=== PATIENT | female | born 1935 | race Caucasian/White ===

== ENCOUNTER 2023-07-23 12:39 | Inpatient (IN) | payer MEDICARE ==
--- NOTE | 2023-07-23 13:08 | ED ---
General Adult HPI - General Stated complaint: circulation in legs, sent by pcp Time Seen by Provider: 07/23/23 13:07 Source: patient, RN notes reviewed Mode of arrival: ambulatory Limitations: no limitations - History of Present Illness Initial comments: 88-year-old female presents emergency Department from PCPs office for evaluation of bilateral leg swelling. Patient states that she has no cardiac history patient's found to be hypertensive and tachycardic. Patient states she has bilateral leg swelling minimal shortness of breath. Patient states that she's had discoloration to her feet and which she states initially started in her toes couple weeks ago she has is worse in the last 1 week. She initially stated that her toes were having discomfort in them. She denies any history of any vascular disease. Patient denies upper leg pain, abdominal pain - Related Data Allergies Allergy/AdvReac Type Severity Reaction Status Date / Time No Known Allergies Allergy Verified 07/23/23 13:07 Review of Systems ROS Statement: Those systems with pertinent positive or pertinent negative responses have been documented in the HPI. ROS Other: All systems not noted in ROS Statement are negative. Past Medical History Past Medical History: Thyroid Disorder Additional Past Medical History / Comment(s): Glaucoma History of Any Multi-Drug Resistant Organisms: None Reported Past Surgical History: No Surgical Hx Reported Past Psychological History: No Psychological Hx Reported Smoking Status: Never smoker Past Alcohol Use History: None Reported Past Drug Use History: None Reported General Exam - General Exam Comments Initial Comments: Visual Physical Exam Vital signs reviewed General: Well-appearing, nontoxic, no acute distress. Head: Normocephalic, atraumatic Eyes: PERRLA, EOMI ENT: Airway patent Chest: Nonlabored breathing Skin: No visual rash, normal skin tone Neuro: Alert and oriented 3 Musculoskeletal: No gross abnormalities Limitations: no limitations General appearance: alert, in no apparent distress Head exam: Present: atraumatic, normocephalic, normal inspection Eye exam: Present: normal appearance, PERRL, EOMI. Absent: scleral icterus, conjunctival injection, periorbital swelling ENT exam: Present: mucous membranes moist Neck exam: Present: normal inspection. Absent: tenderness, meningismus, lymphadenopathy Respiratory exam: Present: normal lung sounds bilaterally. Absent: respiratory distress, wheezes, rales, rhonchi, stridor Cardiovascular Exam: Present: tachycardia, irregular rhythm, normal heart sounds. Absent: regular rate, normal rhythm, systolic murmur, diastolic murmur, rubs, gallop, clicks GI/Abdominal exam: Present: soft, normal bowel sounds. Absent: distended, tenderness, guarding, rebound, rigid Extremities exam: Present: other (Swelling left versus right lower extremity, feet are cool to touch with purple discoloration there is some erythema to the third digit on the left posterior and dorsal pedis pulses found with Doppler) Neurological exam: Present: alert Skin exam: Present: warm, dry, intact, normal color. Absent: rash Course Vital Signs 07/23/23 07/23/23 07/23/23 13:03 14:02 14:46 Temperature 98 F Pulse Rate 126 H 122 H 81 Respiratory 18 16 18 Rate Blood Pressure 179/115 186/106 160/99 O2 Sat by Pulse 98 96 99 Oximetry EKG Findings - EKG Comments: EKG Findings:: EKG performed at 13:21 A. fib with RVR rate of 128 QRS 73 QT/QTC 292 / 368 - EKG Results: EKG: interpreted by DIANA Medical Decision Making - Medical Decision Making I completed the quick note portion of this chart signed Familia Villarreal PA-C Was pt. sent in by a medical professional or institution ([facility], [employer], urgent care, hospital, or shelter...) When possible be specific @ -PCP Did you speak to anyone other than the patient for history (EMS, parent, family, police, friend...)? What history was obtained from this source @ -No Did you review nursing and triage notes (agree or disagree)? Why? @ -I reviewed and agree with nursing and triage notes Were old charts reviewed (outside hosp., previous admission, EMS record, old EKG, old radiological studies, urgent care reports/EKG's, shelter records)? Report findings @ -No old charts were reviewed Differential Diagnosis (chest pain, altered mental status, abdominal pain women, abdominal pain men, vaginal bleeding, weakness, fever, dyspnea, syncope, headache, dizziness, GI bleed, back pain, seizure, CVA, palpatations, mental health, musculoskeletal)? @ -nDifferential Palpitations Ventricular arrhythmias, atrial arrhythmias, myocardial infarction, anemia, thyrotoxicosis, electrolyte imbalance, hypokalemia, pulmonary embolism, pulmonary disease, drugs, alcohol, anxiety, stress.... This is not meant to be an all-inclusive list.le EKG interpreted by me (3pts min.). @ -As above X-rays interpreted by me (1pt min.). @ -Chest x-ray shows mild atelectasis CT interpreted by me (1pt min.). @ -None done U/S interpreted by me (1pt. min.). @ -Also some bilateral lower extremity negative for acute DVT What testing was considered but not performed or refused? (CT, X-rays, U/S, labs)? Why? @ -None What meds were considered but not given or refused? Why? @ -None Did you discuss the management of the patient with other professionals (professionals i.e. , PA, [employer], lab, RT, psych nurse, mental health social worker, size maker, teacher, appeals officer, case planner)? Give summary @ -Dr. Elliott for admission Was smoking cessation discussed for >3mins.? @ -No Was critical care preformed (if so, how long)? @ -35 minutes Were there social determinants of health that impacted care today? How? (Homelessness, low income, unemployed, alcoholism, drug addiction, transportat ion, low edu. Level, literacy, decrease access to med. care, senior care, rehab)? @ -No Was there de-escalation of care discussed even if they declined (Discuss DNR or withdrawal of care, Hospice)? DNR status @ -No What co-morbidities impacted this encounter? (DM, HTN, Smoking, COPD, CAD, Cancer, CVA, ARF, Chemo, Hep., AIDS, mental health diagnosis, sleep apnea, morbid obesity)? @ -Hypothyroidism Was patient admitted / discharged? Hospital course, mention meds given and route, prescriptions, significant lab abnormalities, going to OR and other pertinent info. @ -[Admitted patient was found in A. fib RVR with new hypertension patient was started on Cardizem, heparin. Patient does have peripheral vascular disease noted patient did have bilateral ultrasounds. Patient be admitted for cardiology evaluation. Undiagnosed new problem with uncertain prognosis? @ -No Drug Therapy requiring intensive monitoring for toxicity (Heparin, Nitro, Insulin, Cardizem)? @ -Heparin, Cardizem Were any procedures done? @ -No Diagnosis/symptom? @ -[A. fib RVR, peripheral vascular disease, hypertension Acute, or Chronic, or Acute on Chronic? @ -Acute Uncomplicated (without systemic symptoms) or Complicated (systemic symptoms)? @ -Complicated Side effects of treatment? @ -No Exacerbation, Progression, or Severe Exacerbation? @ -No Poses a threat to life or bodily function? How? (Chest pain, USA, DE, pneumonia, PE, COPD, DKA, ARF, appy, cholecystitis, CVA, Diverticulitis, Homicidal, Suicidal, threat to staff... and all critical care pts) @ -[yes arrhythmia - Lab Data Result diagrams: 07/23/23 13:21 07/23/23 13:21 Lab Results 07/23/23 07/23/23 07/23/23 Range/Units 13:21 13:21 13:21 WBC 5.9 (3.8-10.6) k/uL RBC 5.03 (3.80-5.40) m/uL Hgb 15.3 (11.4-16.0) gm/dL Hct 46.9 H (34.0-46.0) % MCV 93.3 (80.0-100.0) fL MCH 30.3 (25.0-35.0) pg MCHC 32.5 (31.0-37.0) g/dL RDW 13.7 (11.5-15.5) % Plt Count 194 (150-450) k/uL MPV 8.1 Neutrophils % 75 % Lymphocytes % 19 % Monocytes % 4 % Eosinophils % 1 % Basophils % 0 % Neutrophils # 4.4 (1.3-7.7) k/uL Lymphocytes # 1.1 (1.0-4.8) k/uL Monocytes # 0.2 (0-1.0) k/uL Eosinophils # 0.1 (0-0.7) k/uL Basophils # 0.0 (0-0.2) k/uL PT 10.8 (10.0-12.5) sec INR 1.0 (<1.2) APTT 23.4 (22.0-30.0) sec Sodium 140 (137-145) mmol/L Potassium 4.5 (3.5-5.1) mmol/L Chloride 106 (98-107) mmol/L Carbon Dioxide 22 (22-30) mmol/L Anion Gap 12 mmol/L BUN 19 H (7-17) mg/dL Creatinine 0.84 (0.52-1.04) mg/dL Est GFR (CKD-EPI)AfAm 71 (>60 ml/min/1.73 sqM) Est GFR (CKD-EPI)NonAf 62 (>60 ml/min/1.73 sqM) Glucose 97 (74-99) mg/dL Calcium 9.4 (8.4-10.2) mg/dL Magnesium 2.0 (1.6-2.3) mg/dL Total Bilirubin 0.6 (0.2-1.3) mg/dL AST 52 H (14-36) U/L ALT 45 H (4-34) U/L Alkaline Phosphatase 69 (38-126) U/L Troponin I (0.000-0.034) ng/mL NT-Pro-B Natriuret Pep 3290 pg/mL Total Protein 7.6 (6.3-8.2) g/dL Albumin 4.5 (3.5-5.0) g/dL 07/23/23 Range/Units 13:21 WBC (3.8-10.6) k/uL RBC (3.80-5.40) m/uL Hgb (11.4-16.0) gm/dL Hct (34.0-46.0) % MCV (80.0-100.0) fL MCH (25.0-35.0) pg MCHC (31.0-37.0) g/dL RDW (11.5-15.5) % Plt Count (150-450) k/uL MPV Neutrophils % % Lymphocytes % % Monocytes % % Eosinophils % % Basophils % % Neutrophils # (1.3-7.7) k/uL Lymphocytes # (1.0-4.8) k/uL Monocytes # (0-1.0) k/uL Eosinophils # (0-0.7) k/uL Basophils # (0-0.2) k/uL PT (10.0-12.5) sec INR (<1.2) APTT (22.0-30.0) sec Sodium (137-145) mmol/L Potassium (3.5-5.1) mmol/L Chloride (98-107) mmol/L Carbon Dioxide (22-30) mmol/L Anion Gap mmol/L BUN (7-17) mg/dL Creatinine (0.52-1.04) mg/dL Est GFR (CKD-EPI)AfAm (>60 ml/min/1.73 sqM) Est GFR (CKD-EPI)NonAf (>60 ml/min/1.73 sqM) Glucose (74-99) mg/dL Calcium (8.4-10.2) mg/dL Magnesium (1.6-2.3) mg/dL Total Bilirubin (0.2-1.3) mg/dL AST (14-36) U/L ALT (4-34) U/L Alkaline Phosphatase (38-126) U/L Troponin I 0.015 (0.000-0.034) ng/mL NT-Pro-B Natriuret Pep pg/mL Total Protein (6.3-8.2) g/dL Albumin (3.5-5.0) g/dL - EKG Data -: EKG Interpreted by Me Critical Care Time Critical Care Time: Yes Total Critical Care Time: 35 Disposition Clinical Impression: Atrial fibrillation with RVR, Peripheral vascular disease, Hypertension Disposition: ADMITTED IP TO THIS HOSP Referrals: Tyrone Adkins MD [Primary Care Provider] - 1-2 days Time of Disposition: 15:46
[2023-07-23 13:42] LABS: Basophils % (A) 0 %; Eosinophils # (A) 0.1 k/uL (0-0.7); Eosinophils % (A) 1 %; HCT 46.9 % (34.0-46.0); HGB 15.3 gm/dL (11.4-16.0); Lymphocytes # (A) 1.1 k/uL (1.0-4.8); Lymphocytes % (A) 19 %; MCH 30.3 pg (25.0-35.0); MCHC 32.5 g/dL (31.0-37.0); MCV 93.3 fL (80.0-100.0); Mean Platelet Volume 8.1; Monocytes # (A) 0.2 k/uL (0-1.0); Monocytes % (A) 4 %; Neutrophils # (A) 4.4 k/uL (1.3-7.7); Neutrophils % (A) 75 %; Platelet Count 194 k/uL (150-450); RBC 5.03 m/uL (3.80-5.40); RDW 13.7 % (11.5-15.5); WBC 5.9 k/uL (3.8-10.6)
[2023-07-23] MEDS ORDERED: HEPARIN SODIUM 1,000 UN/ML (10ML VL) IV PRN (13:45)
[2023-07-23] MEDS ORDERED: HEPARIN SODIUM 1,000 UN/ML (10ML VL) IV ONE (13:45)
[2023-07-23] MEDS ORDERED: DILTIAZEM DRIP BOLUS FROM BAG 1 MG SOLN IV ONE (13:46)
[2023-07-23 13:52] LABS: ALT 45 U/L (4-34); AST 52 U/L (14-36); African American GFR (CKD) 71 (>60 ml/min/1.73 sqM); Albumin 4.5 g/dL (3.5-5.0); Alkaline Phosphatase 69 U/L (38-126); Anion Gap 12 mmol/L; Blood Urea Nitrogen 19 mg/dL (7-17); Calcium 9.4 mg/dL (8.4-10.2); Carbon Dioxide 22 mmol/L (22-30); Chloride 106 mmol/L (98-107); Glucose 97 mg/dL (74-99); Non-African American GFR(CKD) 62 (>60 ml/min/1.73 sqM); Potassium 4.5 mmol/L (3.5-5.1); Sodium 140 mmol/L (137-145); Total Bilirubin 0.6 mg/dL (0.2-1.3); Total Protein 7.6 g/dL (6.3-8.2)
[2023-07-23 13:59] LABS: Partial Thromboplastin Time 23.4 sec (22.0-30.0); Prothrombin Time 10.8 sec (10.0-12.5)
[2023-07-23 14:00] LABS: NT-Pro-B-Type Natriuretic Pept 3290 pg/mL
[2023-07-23] MEDS ORDERED: HEPARIN SOD,PORK IN 0.45% NACL 25,000 UNIT in 0.45% NACL 1 250ML.BAG IV SCH (14:15)
[2023-07-23] MEDS ORDERED: DILTIAZEM 125 MG in SODIUM CHLORIDE 0.9% 100 ML IV SCH (14:15)
--- NOTE | 2023-07-23 14:53 | XR ---
EXAMINATION TYPE: XR chest 2V DATE OF EXAM: 07/23/2023 COMPARISON: 11/09/2010 TECHNIQUE: PA and lateral views submitted. HISTORY: Chest pain FINDINGS: No pleural effusion or pneumothorax.. Heart is enlarged but no overt failure. Diffuse emphysematous c hanges. Diffuse osteopenia with AC joint arthropathy. Left basilar subsegmental consolidation.. [place] us structures demonstrate hypertrophic and degenerative changes of the spine. Scoliosis noted. Athero sclerotic change aorta. Nodular density right medial lung base favor superimposed structures or nippl e shadow. Biapical pleural thickening greater on the right. IMPRESSION: 1. COPD with left basilar atelectasis versus early pneumonia, correlate clinically..
--- NOTE | 2023-07-23 15:36 | US ---
EXAMINATION TYPE: US venous doppler duplex LE DATE OF EXAM: 07/23/2023 2:01 PM COMPARISON: NONE CLINICAL INDICATION: Female, 88 years old with history of pain, swelling; Bilateral swelling. No hx of DVT. No redness. Not on blood thinners. Portable EC exam SIDE PERFORMED: Bilateral TECHNIQUE: The lower extremity deep venous system is examined utilizing real time linear array sonog yumiko with graded compression, doppler sonography and color-flow sonography. VESSELS IMAGED: Common Femoral Vein Deep Femoral Vein Greater Saphenous Vein * Femoral Vein Popliteal Vein Small Saphenous Vein * Proximal Calf Veins Posterior tibial veins (* superficial vessels) Right Leg: Negative for DVT Left Leg: Negative for DVT IMPRESSION: No evidence for DVT within the bilateral lower extremities.
[2023-07-23] MEDS ORDERED: NITROGLYCERIN SL TABS 0.4 MG TAB SUBLINGUAL PRN (15:54)
[2023-07-23] MEDS ORDERED: NALOXONE 0.4 MG/ML 1 ML VIAL IV PRN (17:07)
[2023-07-23] MEDS ORDERED: ACETAMINOPHEN TAB 325 MG TAB PO PRN (17:08)
--- NOTE | 2023-07-23 17:09 | P.HPIM ---
History of Present Illness H&P Date: 07/23/23 Patient is a 88-year-old female with history of hypothyroidism and glaucoma who presented from Dr. Adkins's office due to dusky appearance of bilateral feet. On arrival to the ER she was found to be tachycardic. EKG demonstrated atrial fibrillation with rapid ventricular response as well as premature ventricular contractions. Labs reviewed include CBC, coags, CMP, magnesium, troponin, and BNP which are remarkable for BUN 19, AST 52, ALT 45, and BNP of 3290. Motor strength venous Dopplers were negative for DVT. Chest x-ray demonstrated atelectasis versus early pneumonia. She was subsequently started on heparin and Cardizem drip. Arrangements are made for admission. Cardiology was consulted. Patient seen and examined at bedside. She reports that for the last 2 weeks she has had some pain involving her feet. She initially thought it might be gout, as I have a history of this. Her did and would have told pain. She then noticed bilateral lower extremity swelling as well as purple discoloration. She reports the discoloration is worse when her legs are hanging down versus when they are supported. She denies any chest pain, shortness of breath, or palpitations. She denies any weakness numbness or tingling in her lower extremities. She ambulance without any need for assistive devices. She denies any pain with ambulation. Vital signs reviewed General: nontoxic, no distress, appears at stated age Derm: ischemic appearing feet bilateral worse at distal foot and toes. Eyes: EOMI, no lid lag, anicteric sclera, pupils equal round reactive to light ENT: Nose and ears atraumatic, no thrush, no pharyngeal erythema Cardiovascular: S1S2 reg, no murmur, absent posterior tibial pulse and DP pulse bilateral,(per ED doc + dopplerable DP), 2+ pitting edema Lungs: clear to auscultation bilateral, no rhonchi, no rales, no wheeze, no accessory muscle use Abdominal: soft, nontender to palpation, no guarding, no appreciable organomegaly, normal bowel sounds Ext: no gross muscle atrophy, no contractures Neuro: CN II-XII grossly intact, no focal neuro deficits Psych: Alert, oriented, appropriate affect Assessment/Plan: A fib with RVR Probable new onset CHF B/l lE ischemia suspect due to hypoperfusion and underlying PAD Transaminitis - cardizem gtt at 5 mg/hr - heparin gtt, titirate via ptt and monitor signs of bleeding - echo - cardio consult - LISET - check TSH - repeat CBC and CMP in AM Hypothyroidism - synthroid 75 mcg daily Glaucome - patient to take home eye drops. Imaging: As per HPI Data Review: As per HPI The patient is admitted with an anticipated greater than 2 midnight stay for evaluation of A fib with RVR and fluid overload. Surrogate decision-maker: daughter CODE STATUS: DNR, okay with cardioversion and antiarrhythmics DVT prophylaxis: Heparin gtt Anticipated discharge date: Pending Clinical Course Anticipated discharge place: Pending Clinical Course This dictation was prepared using [employer] voice recognition software. Though every attempt is made to correct errors during dictation some may still exist. Past Medical History Past Medical History: Thyroid Disorder Additional Past Medical History / Comment(s): Glaucoma History of Any Multi-Drug Resistant Organisms: None Reported Past Surgical History: No Surgical Hx Reported Past Psychological History: No Psychological Hx Reported Smoking Status: Never smoker Past Alcohol Use History: Occasional Past Drug Use History: None Reported Medications and Allergies Home Medications Medication Instructions Recorded Confirmed Type Dorzolamide-Timol 2.23%/0.68% 1 drop BOTH EYES BID 07/23/23 07/23/23 History [Cosopt] Latanoprost [Latanoprost 0.005%] 1 drop BOTH EYES HS 07/23/23 07/23/23 History Levothyroxine Sodium [Synthroid] 75 mcg PO DAILY 07/23/23 07/23/23 History Allergies Allergy/AdvReac Type Severity Reaction Status Date / Time No Known Allergies Allergy Verified 07/23/23 16:17 Physical Exam Osteopathic Statement: *. No significant issues noted on an osteopathic structural exam other than those noted in the History and Physical/Consult. Vitals: Vital Signs Temp Pulse Resp BP Pulse Ox 07/23/23 15:00 76 18 153/88 97 07/23/23 14:46 81 18 160/99 99 07/23/23 14:02 122 H 16 186/106 96 07/23/23 13:03 98 F 126 H 18 179/115 98 Intake and Output 07/23/23 07/23/23 07/23/23 06:59 14:59 22:59 Other: Weight 50.349 kg Results CBC & Chem 7: 07/23/23 13:21 07/23/23 13:21 Labs: Abnormal Lab Results - Last 24 Hours (Table) 07/23/23 07/23/23 Range/Units 13:21 13:21 Hct 46.9 H (34.0-46.0) % BUN 19 H (7-17) mg/dL AST 52 H (14-36) U/L ALT 45 H (4-34) U/L
--- NOTE | 2023-07-23 19:49 | US ---
EXAMINATION TYPE: US arterial LE single level DATE OF EXAM: 07/23/2023 6:38 PM CLINICAL INDICATION: Female, 88 years old with history of LISET/TBI: ischemic b/l LE; Feet swelling History of: Smoker: No Hypertension: No Diabetic: No Hyperlipidemia: No TIA/CVA: No Previous Vascular Surgery: No CAD: No VA: No Vascular Ulcers: No Claudication: No Gangrene: No Right Brachial Pressure: 167 Left Brachial Pressure: Deferred due to IV Ankle-Brachial Indices: Right: 1.02 Left: 1.11 Toe Brachial Indices: Unable to see well enough to assess IMPRESSION: Ankle-brachial indices within normal limits bilaterally.
[2023-07-23] MEDS: FUROSEMIDE 10 MG/ML 2 ML VIAL IV SCH (20:56)
[2023-07-23] MEDS ORDERED: METOPROLOL TARTRATE 25 MG TAB PO SCH (21:00)
[2023-07-23] MEDS ORDERED: MELATONIN 3 MG TABLET PO PRN (21:00)
[2023-07-23] MEDS: DORZOLAMIDE-TIMOLOL 2.23%/0.68 10ML BTL BOTH EYES SCH (21:47)
[2023-07-23] MEDS: LATANOPROST 0.005% OPHTH DROPS 2.5 ML BTL BOTH EYES SCH (21:47)
[2023-07-23] MEDS: METOPROLOL TARTRATE 25 MG TAB PO SCH (21:52)
[2023-07-24] MEDS: LEVOTHYROXINE 75 MCG TAB PO SCH (06:05)
[2023-07-24] MEDS: FUROSEMIDE 10 MG/ML 2 ML VIAL IV SCH (08:01)
[2023-07-24] MEDS: METOPROLOL TARTRATE 25 MG TAB PO SCH ×2 (08:01→21:14)
[2023-07-24] MEDS: DORZOLAMIDE-TIMOLOL 2.23%/0.68 10ML BTL BOTH EYES SCH ×2 (08:01→21:14)
--- NOTE | 2023-07-24 10:22 | P.CRDCN ---
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 Patient stated that about 2 weeks ago she noted that her toes were aching and she thought was related to gout. She also noted that her feet were swelling. Yesterday she went to see her PCP and was sent into the emergency center for evaluation. She denies having any shortness of breath, she is normally quite active. No palpitations and no chest pain. She denies having any shortness of breath nor chest pain with activity. She denies dizziness, no syncopal episode. She denies any blood in her urine or stool. Patient drinks 4 cups of coffee every morning. She denies any alcohol use and has never been a smoker. She states lower extremity edema is improved from yesterday. She denies history of hypertension or diabetes. No history of lung conditions. Patient received Cardizem 10 mg bolus, heparin drip and one dose of IV Lasix 40 mg followed by 20 mg IV daily and started on metoprolol tartrate 25 mg twice daily. Patient is seen today in the emergency center waiting for a bed on the cardiac stepdown unit. EKG #1 A. fib with RVR nonspecific ST-T wave changes, PVCs. #2 atrial f ibrillation with rate controlled Chest x-ray: COPD atelectasis on the left WBC unremarkable. INR 1. Electrolytes normal. BUN 19 creatinine 0.84. Troponin negative 3. AST 52, ALT 45. TSH 4.09. Magnesium 2.0. Home cardiac medications: levothyroxine 75 g daily Review Of Systems: At the time of my exam: CONSTITUTIONAL: Denies fever or chills. CARDIOVASCULAR: Denies chest pain, Denies shortness of breath, no orthopnea, PND or palpitations. RESPIRATORY: Denies cough. GASTROINTESTINAL: Denies abdominal pain, diarrhea, constipation, nausea or vomiting. MUSCULOSKELETAL: Denies myalgias. NEUROLOGIC: Denies numbness, tingling or weakness. ENDOCRINE: Denies fatigue, weight change, polydipsia or polyurina. GENITOURINARY: Denies burning, hematuria or urgency with micturation. HEMATOLOGIC: Denies history of anemia or bleeding. Physical examination: Gen: This is An 88-year-old female resting in bed and in no acute distress. VS Reviewed HEENT: Head is atraumatic, normocephalic. Pupils equal, round. Sclerae is anicteric. NECK: Supple. No JVD. LUNGS: Clear to auscultation. No wheezes or rhonchi. No intercostal retractions. HEART: Irregular rate and rhythm. No murmur. ABDOMEN: Soft No tenderness. EXTREMITIES: No pedal edema. No calf tenderness. NEUROLOGICAL: Patient is awake, alert and oriented x3. Assessment: Atrial fibrillation with RVR, possible paroxysmal, unknown duration Hypothyroidism Plan: Continue IV Lasix for another day Start patient on eliquis 2.5 mg twice daily and discontinue heparin drip Continue Lopressor 25 mg twice daily Obtain 2-D echocardiogram and Doppler study to assess cardiac structure and function Further recommendations to follow based upon clinical course Thank you kindly for this consultation. Nurse practitioner note has been reviewed, I agree with documented findings and plan of care. Patient was seen and examined. Past Medical History Past Medical History: Thyroid Disorder Additional Past Medical History / Comment(s): Glaucoma History of Any Multi-Drug Resistant Organisms: None Reported Past Surgical History: No Surgical Hx Reported Past Anesthesia/Blood Transfusion Reactions: No Reported Reaction Smoking Status: Never smoker - Past Family History Brother(s) Family Medical History: Myocardial Infarction (MT) Medications and Allergies Home Medications Medication Instructions Recorded Confirmed Type Dorzolamide-Timol 2.23%/0.68% 1 drop BOTH EYES BID 07/23/23 07/23/23 History [Cosopt] Latanoprost [Latanoprost 0.005%] 1 drop BOTH EYES HS 07/23/23 07/23/23 History Levothyroxine Sodium [Synthroid] 75 mcg PO DAILY 07/23/23 07/23/23 History Allergies Allergy/AdvReac Type Severity Reaction Status Date / Time No Known Allergies Allergy Verified 07/23/23 16:17 Physical Exam Vitals: Vital Signs Temp Pulse Pulse Resp BP BP Pulse Ox 07/24/23 07:56 107 H 18 135/86 96 07/24/23 04:00 97.6 F 76 17 140/94 98 07/24/23 00:00 98 F 80 16 143/84 96 07/23/23 23:11 98.2 F 65 16 144/90 97 07/23/23 20:41 98.0 F 81 15 137/94 97 07/23/23 17:45 70 18 148/92 98 07/23/23 15:00 76 18 153/88 97 07/23/23 14:46 81 18 160/99 99 07/23/23 14:02 122 H 16 186/106 96 07/23/23 13:03 98 F 126 H 18 179/115 98 Intake and Output 07/23/23 07/24/23 07/24/23 22:59 06:59 14:59 Intake Total 74.384 49.242 Output Total 1250 Balance 74.384 -1200.758 Intake: Intake, IV Titration 74.384 49.242 Amount Diltiazem 125 mg In 33.5 Sodium Chloride 0.9% 100 ml @ 5 MG/HR 5 mls/hr IV .Q24H [facility] Rx#:[id number] Heparin Sod,Pork in 0.45% 40.884 49.242 NaCl 25,000 unit In 0.45 % NaCl 1 250ml.bag @ 12 UNITS/KG/HR 6.042 mls/hr IV .Q24H [facility] Rx#: [id number] Output: Urine 1250 Other: Voiding Method External Catheter Weight 50.349 kg Results 07/23/23 13:21 07/23/23 13:21 Cardiac Enzymes 07/23/23 07/23/23 07/23/23 Range/Units 13:21 13:21 17:17 AST 52 H (14-36) U/L Troponin I 0.015 0.012 (0.000-0.034) ng/mL 07/23/23 Range/Units 19:53 AST (14-36) U/L Troponin I <0.012 (0.000-0.034) ng/mL Coagulation 07/23/23 07/23/23 07/24/23 Range/Units 13:21 19:53 03:35 PT 10.8 (10.0-12.5) sec APTT 23.4 38.1 H 39.9 H (22.0-30.0) sec CBC 07/23/23 Range/Units 13:21 WBC 5.9 (3.8-10.6) k/uL RBC 5.03 (3.80-5.40) m/uL Hgb 15.3 (11.4-16.0) gm/dL Hct 46.9 H (34.0-46.0) % Plt Count 194 (150-450) k/uL Comprehensive Metabolic Panel 07/23/23 Range/Units 13:21 Sodium 140 (137-145) mmol/L Potassium 4.5 (3.5-5.1) mmol/L Chloride 106 (98-107) mmol/L Carbon Dioxide 22 (22-30) mmol/L BUN 19 H (7-17) mg/dL Creatinine 0.84 (0.52-1.04) mg/dL Glucose 97 (74-99) mg/dL Calcium 9.4 (8.4-10.2) mg/dL AST 52 H (14-36) U/L ALT 45 H (4-34) U/L Alkaline Phosphatase 69 (38-126) U/L Total Protein 7.6 (6.3-8.2) g/dL Albumin 4.5 (3.5-5.0) g/dL Current Medications Generic Name Dose Route Start Last Admin Trade Name Freq PRN Reason Stop Dose Admin Acetaminophen 650 mg 07/23/23 17:08 Acetaminophen Tab 325 Mg Tab PO Q6HR PRN Mild Pain or Fever > 100.5 Dorzolamide/Timolol 1 drops 07/23/23 21:00 07/24/23 08:01 Dorzolamide-Timolol 2.23%/0.68 10ml Btl BOTH EYES 1 drops BID [facility] Administration Furosemide 20 mg 07/23/23 17:15 07/24/23 08:01 Furosemide 10 Mg/Ml 2 Ml Vial IV 20 mg DAILY [facility] Administration Heparin Sodium (Porcine) 0 unit 07/23/23 13:45 07/24/23 05:05 Heparin Sodium 1,000 Un/Ml (10ml Vl) IV 1,250 unit PER PROTOCOL PRN Administration Low PTT Protocol Heparin Sodium/Sodium Chloride 250 mls @ 6.042 mls/hr 07/23/23 14:15 07/24/23 05:01 25,000 unit/ Sodium Chloride IV 14 units/kg/hr .Q24H [facility] 7.049 mls/hr Titration Protocol 12 UNITS/KG/HR Latanoprost 1 drops 07/23/23 21:00 07/23/23 21:47 Latanoprost 0.005% Ophth Drops 2.5 Ml Btl BOTH EYES Not Given HS [facility] Levothyroxine Sodium 75 mcg 07/24/23 06:30 07/24/23 06:05 Levothyroxine 75 Mcg Tab PO 75 mcg 0630 [facility] Administration Melatonin 3 mg 07/23/23 21:00 Melatonin 3 Mg Tablet PO HS PRN Insomnia Metoprolol Tartrate 25 mg 07/23/23 19:00 07/24/23 08:01 Metoprolol Tartrate 25 Mg Tab PO 25 mg BID [facility] Administration Naloxone HCl 0.2 mg 07/23/23 17:07 Naloxone 0.4 Mg/Ml 1 Ml Vial IV Q2M PRN Opioid Reversal Nitroglycerin 0.4 mg 07/23/23 15:54 Nitroglycerin Sl Tabs 0.4 Mg Tab SUBLINGUAL Q5M PRN Chest Pain Intake and Output 07/23/23 07/24/23 07/24/23 22:59 06:59 14:59 Intake Total 74.384 49.242 Output Total 1250 Balance 74.384 -1200.758 Intake: Intake, IV Titration 74.384 49.242 Amount Diltiazem 125 mg In 33.5 Sodium Chloride 0.9% 100 ml @ 5 MG/HR 5 mls/hr IV .Q24H [facility] Rx#:[id number] Heparin Sod,Pork in 0.45% 40.884 49.242 NaCl 25,000 unit In 0.45 % NaCl 1 250ml.bag @ 12 UNITS/KG/HR 6.042 mls/hr IV .Q24H [facility] Rx#: [id number] Output: Urine 1250 Other: Voiding Method External Catheter Weight 50.349 kg 07/23/23 13:21 07/23/23 13:21
[2023-07-24] MEDS: APIXABAN 2.5 MG TABLET PO SCH ×2 (10:28→21:14)
[2023-07-24 11:55] LABS: HCT 46.9 % (34.0-46.0); MCH 29.8 pg (25.0-35.0); MCV 92.8 fL (80.0-100.0); Mean Platelet Volume 8.1; Platelet Count 215 k/uL (150-450); RBC 5.05 m/uL (3.80-5.40); RDW 13.7 % (11.5-15.5); WBC 4.5 k/uL (3.8-10.6)
--- NOTE | 2023-07-24 12:01 | CA ---
Transthoracic Echo Report Name: Nelsy Fu Age: 88 Gender: F : 1935 Exam Date: 07/24/2023 10:15 Exam Location: [facility] Ht (in): 63 Wt (lb): 111 Ordering Physician: Familia Villarreal PAC Attending/Referring Phys: [id number], Phil Milk Processing Worker Emelia Hicks RDCS Procedure CPT: Indications: New onset afib Cardiac Hx: Technical Quality: Good Contrast 1: Total Dose (mL): Contrast 2: Total Dose (mL): MEASUREMENTS (Male / Female) Normal Values 2D ECHO LV Diastolic Diameter PLAX 3.8 cm 4.2 - 5.9 / 3.9 - 5.3 cm LV Systolic Diameter PLAX 3.1 cm IVS Diastolic Thickness 1.1 cm 0.6 - 1.0 / 0.6 - 0.9 cm LVPW Diastolic Thickness 1.3 cm 0.6 - 1.0 / 0.6 - 0.9 cm LV Relative Wall Thickness 0.6 RV Internal Dim ED PLAX 3.0 cm LA Systolic Diameter LX 4.3 cm 3.0 - 4.0 / 2.7 - 3.8 cm LV Diastolic Volume MOD 4C 51.3 cm??? LV Systolic Volume MOD 4C 29.2 cm??? LV Ejection Fraction MOD 4C 43.1 % LV Cardiac Index MOD 4C 1303.6 cm???/min???m??? LV Diastolic Length 4C 6.2 cm LV Systolic Length 4C 5.6 cm LV Diastolic Volume MOD 2C 45.5 cm??? LV Systolic Volume MOD 2C 24.5 cm??? LV Ejection Fraction MOD 2C 46.2 % LV Cardiac Index MOD 2C 1240.6 cm???/min???m??? LV Diastolic Length 2C 6.4 cm LV Systolic Length 2C 5.6 cm LA Volume 69.1 cm??? 18 - 58 / 22 - 52 cm??? LA Volume Index 46.3 cm???/m??? 16 - 28 cm???/m??? M-MODE Aortic Root Diameter MM 3.6 cm MV E Point Septal Separation 0.3 cm AV Cusp Separation MM 2.5 cm DOPPLER AV Peak Velocity 118.2 cm/s AV Peak Gradient 5.6 mmHg AI Peak Velocity 437.0 cm/s AI Peak Gradient 76.4 mmHg AI Pressure Half Time 938.3 ms MV Area PHT 4.4 cm??? MV Deceleration Time 163.6 ms TR Peak Velocity 223.5 cm/s TR Peak Gradient 20.0 mmHg Right Ventricular Systolic Press 24.7 mmHg FINDINGS Left Ventricle Left ventricular ejection fraction is estimated at 45 %. Small left ventricular cavity. Mildly increased septal wall thickness. Moderately increased posterior wall thickness. Right Ventricle Normal right ventricular size. Right ventricular systolic pressure within normal limits. Right Atrium Normal right atrial size. Left Atrium Moderately increased left atrial diameter. Moderately increased left atrial volume. Mildly increased left atrial area. Mitral Valve Structurally normal mitral valve. Mitral valve thickened. Mild mitral annular calcification. Bileaflet mitral valve prolapse. Mild mitral regurgitation. Aortic Valve Trileaflet aortic valve. Mild aortic regurgitation. Tricuspid Valve Structurally normal tricuspid valve. Mild tricuspid regurgitation. Pulmonic Valve Structurally normal pulmonic valve. No pulmonic regurgitation. Pericardium No pericardial effusion. Aorta Normal size aortic root and proximal ascending aorta. CONCLUSIONS Mildly impaired LV function with EF around 45% Mitral valve prolapse with mild mitral regurgitation Mild aortic regurgitation Previewed by: Dr. Reid Blanchard MD (Electronically Signed) Final Date: 24 July 2023 12:00
[2023-07-24 12:13] LABS: African American GFR (CKD) 67 (>60 ml/min/1.73 sqM); Anion Gap 10 mmol/L; Blood Urea Nitrogen 15 mg/dL (7-17); Carbon Dioxide 29 mmol/L (22-30); Chloride 98 mmol/L (98-107); Glucose 117 mg/dL (74-99); Non-African American GFR(CKD) 58 (>60 ml/min/1.73 sqM); Potassium 3.7 mmol/L (3.5-5.1); Sodium 137 mmol/L (137-145)
[2023-07-24] MEDS ORDERED: MAGNESIUM OXIDE 400 MG TAB PO STA (17:23)
--- NOTE | 2023-07-24 17:25 | P.PN ---
Subjective Progress Note Date: 07/24/23 (delayed charting seen at 1050) Patient is a 88-year-old female with history of hypothyroidism and glaucoma who presented from Dr. Adkins's office due to dusky appearance of bilateral feet. On arrival to the ER she was found to be tachycardic. EKG demonstrated atrial fibrillation with rapid ventricular response as well as premature ventricular contractions. Labs reviewed include CBC, coags, CMP, magnesium, troponin, and BNP which are remarkable for BUN 19, AST 52, ALT 45, and BNP of 3290. Motor strength venous Dopplers were negative for DVT. Chest x-ray demonstrated atelectasis versus early pneumonia. She was subsequently started on heparin and Cardizem drip. Arrangements are made for admission. Cardiology was consulted. Her rate was well controlled on Cardizem drip was discontinued to started on oral metoprolol 25 mg twice daily. Echocardiogram came back with ejection fraction of 45%. She was maintained on IV Lasix. Patient seen and examined at bedside. She reports that her pain in her feet has almost resolved. Her swelling is completely better. She denies any chest pain or palpitations. 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 with continued IV Lasix. - Mildly low magnesium level Lasix with magnesium oxide 400 mg oral 1 Hypothyroidism - synthroid 75 mcg daily Glaucoma - patient to take home eye drops. Imaging: Echocardiogram: Ejection fraction 45%, mitral valve prolapse Data Review: Labs reviewed from today include CBC and basic metabolic profile which are within normal limits. The patient is admitted with an anticipated greater than 2 midnight stay for evaluation of A fib with RVR and fluid overload. DVT prophylaxis: Anticipated discharge date: Pending Clinical Course Anticipated discharge place: Pending Clinical Course This dictation was prepared using [employer] voice recognition software. Though every attempt is made to correct errors during dictation some may still exist. Objective - Vital Signs Vital signs: Vital Signs Temp 97.6 F 07/24/23 04:00 Pulse 121 H 07/24/23 17:00 Resp 15 07/24/23 16:13 BP 131/83 07/24/23 16:13 Pulse Ox 97 07/24/23 16:13 FiO2 Intake & Output 07/23/23 07/24/23 07/24/23 18:59 06:59 18:59 Intake Total 123.626 406.876 Output Total 1250 1600 Balance -1126.374 -1193.124 Weight 50.349 kg 50.349 kg Intake: Intake, IV Titration 123.626 46.876 Amount Diltiazem 125 mg In 33.5 Sodium Chloride 0.9% 100 ml @ 5 MG/HR 5 mls/hr IV .Q24H [facility] Rx#:[id number] Heparin Sod,Pork in 0.45% 90.126 46.876 NaCl 25,000 unit In 0.45 % NaCl 1 250ml.bag @ 12 UNITS/KG/HR 6.042 mls/hr IV .Q24H [facility] Rx#: [id number] Oral 360 Output: Urine 1250 1600 Other: Voiding Method External Catheter - Labs CBC & Chem 7: 07/24/23 11:05 07/24/23 11:05 Labs: Abnormal Lab Results - Last 24 Hours (Table) 07/23/23 07/24/23 07/24/23 Range/Units 19:53 03:35 11:05 Hct (34.0-46.0) % APTT 38.1 H 39.9 H 47.6 H (22.0-30.0) sec Glucose (74-99) mg/dL 07/24/23 07/24/23 Range/Units 11:05 11:05 Hct 46.9 H (34.0-46.0) % APTT (22.0-30.0) sec Glucose 117 H (74-99) mg/dL
[2023-07-24] MEDS: LATANOPROST 0.005% OPHTH DROPS 2.5 ML BTL BOTH EYES SCH (21:14)
[2023-07-25] MEDS: LEVOTHYROXINE 75 MCG TAB PO SCH (06:47)
[2023-07-25 09:25] VITALS: BP 102/73; PULSE 90; RESP 18; TEMP 97.7
[2023-07-25 09:50] LABS: HCT 44.4 % (34.0-46.0); HGB 14.4 gm/dL (11.4-16.0); MCH 30.1 pg (25.0-35.0); MCHC 32.4 g/dL (31.0-37.0); Platelet Count 182 k/uL (150-450); RBC 4.77 m/uL (3.80-5.40); RDW 13.8 % (11.5-15.5); WBC 7.7 k/uL (3.8-10.6)
[2023-07-25 10:01] LABS: African American GFR (CKD) 59 (>60 ml/min/1.73 sqM); Anion Gap 12 mmol/L; Blood Urea Nitrogen 21 mg/dL (7-17); Calcium 8.9 mg/dL (8.4-10.2); Carbon Dioxide 25 mmol/L (22-30); Chloride 96 mmol/L (98-107); Glucose 119 mg/dL (74-99); Magnesium 1.9 mg/dL (1.6-2.3); Non-African American GFR(CKD) 51 (>60 ml/min/1.73 sqM); Potassium 3.8 mmol/L (3.5-5.1); Sodium 133 mmol/L (137-145)
--- NOTE | 2023-07-25 11:00 | P.PN ---
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 Patient stated that about 2 weeks ago she noted that her toes were aching and she thought was related to gout. She also noted that her feet were swelling. Yesterday she went to see her PCP and was sent into the emergency center for evaluation. She denies having any shortness of breath, she is normally quite active. No palpitations and no chest pain. She denies having any shortness of breath nor chest pain with activity. She denies dizziness, no syncopal episode. She denies any blood in her urine or stool. Patient drinks 4 cups of coffee every morning. She denies any alcohol use and has never been a smoker. She states lower extremity edema is improved from yesterday. She denies history of hypertension or diabetes. No history of lung conditions. Patient received Cardizem 10 mg bolus, heparin drip and one dose of IV Lasix 40 mg followed by 20 mg IV daily and started on metoprolol tartrate 25 mg twice daily. Patient is seen today in the emergency center waiting for a bed on the cardiac stepdown unit. EKG #1 A. fib with RVR nonspecific ST-T wave changes, PVCs. #2 atrial fibrillation with rate controlled Chest x-ray: COPD atelectasis on the left WBC unremarkable. INR 1. Electrolytes normal. BUN 19 creatinine 0.84. Troponin negative 3. AST 52, ALT 45. TSH 4.09. Magnesium 2.0. Home cardiac medications: levothyroxine 75 g daily 07/25 She is seen today in follow-up. She remains in atrial fibrillation but controlled rate. Yesterday we started her on eliquis, continued Lopressor and continued IV Lasix for 1 more day. Echocardiogram reveals EF of 45%, mitral valve prolapse with mild mitral regurgitation, mild aortic regurgitation. Physical examination: Gen: This is An 88-year-old female resting in bed and in no acute distress. VS Reviewed HEENT: Head is atraumatic, normocephalic. Pupils equal, round. Sclerae is anicteric. NECK: Supple. No JVD. LUNGS: Clear to auscultation. No wheezes or rhonchi. No intercostal retractions. HEART: Irregular rate and rhythm. No murmur. ABDOMEN: Soft No tenderness. EXTREMITIES: No pedal edema. No calf tenderness. NEUROLOGICAL: Patient is awake, alert and oriented x3. Assessment: Atrial fibrillation with RVR, possible paroxysmal, unknown duration Hypothyroidism Plan: Transition IV Lasix to oral 20 mg daily Continue patient on eliquis 2.5 mg twice daily Continue Lopressor 25 mg twice daily Patient is cleared for discharge from cardiology may follow-up with Dr. Owens in 2-3 weeks. Nurse practitioner note has been reviewed, I agree with documented findings and plan of care. Patient was seen and examined. Objective - Vital Signs Vital signs: Vital Signs Temp 97.7 F 07/25/23 08:00 Pulse 90 07/25/23 08:00 Resp 18 07/25/23 08:00 BP 102/73 07/25/23 08:00 Pulse Ox 99 07/25/23 08:00 FiO2 Intake & Output 07/24/23 07/25/23 07/25/23 18:59 06:59 18:59 Intake Total 586.876 118 Output Total 1600 Balance -1013.124 118 Weight 46.9 kg Intake: Intake, IV Titration 46.876 Amount Heparin Sod,Pork in 0.45% 46.876 NaCl 25,000 unit In 0.45 % NaCl 1 250ml.bag @ 12 UNITS/KG/HR 6.042 mls/hr IV .Q24H [facility] Rx#: [id number] Oral 540 118 Output: Urine 1600 Other: Voiding Method External Catheter Toilet External Catheter # Voids 1 1 - Labs CBC & Chem 7: 07/25/23 08:44 07/25/23 08:44 Labs: Abnormal Lab Results - Last 24 Hours (Table) 07/24/23 07/24/23 07/24/23 Range/Units 11:05 11:05 11:05 Hct 46.9 H (34.0-46.0) % APTT 47.6 H (22.0-30.0) sec Glucose 117 H (74-99) mg/dL
[2023-07-25] MEDS: APIXABAN 2.5 MG TABLET PO SCH (11:01)
[2023-07-25] MEDS: METOPROLOL TARTRATE 25 MG TAB PO SCH (11:01)
[2023-07-25] MEDS: DORZOLAMIDE-TIMOLOL 2.23%/0.68 10ML BTL BOTH EYES SCH (11:02)
--- NOTE | 2023-07-25 11:05 | P.DS ---
Providers Date of admission: 07/23/23 15:54 Expected date of discharge: 07/25/23 Attending physician: Lynnette Figueroa DO Consults: 07/23/23 15:54 Consult Physician Urgent Consulting Provider: Reid Blanchard Consult Reason/Comments: New-onset A. fib, A. fib RVR Do you want consulting provider notified?: Yes Primary care physician: Tyrone Delgadillo [facility] Course: A fib with RVR Acute exacerbation of diastolic congestive heart failure with ejection fraction 45% B/l lE ischemia deu to hypoperfusion Transaminitis Hypothyroidism Glaucoma Patient is a 88-year-old female with history of hypothyroidism and glaucoma who presented from Dr. Adkins's office due to dusky appearance of bilateral feet. On arrival to the ER she was found to be tachycardic. EKG demonstrated atrial fibrillation with rapid ventricular response as well as premature ventricular contractions. Labs reviewed include CBC, coags, CMP, magnesium, troponin, and BNP which are remarkable for BUN 19, AST 52, ALT 45, and BNP of 3290. Motor strength venous Dopplers were negative for DVT. Chest x-ray demonstrated atelectasis versus early pneumonia. She was subsequently started on heparin and Cardizem drip. Arrangements are made for admission. Cardiology was consulted. Her rate was well controlled on Cardizem drip was discontinued to started on oral metoprolol 25 mg twice daily. Echocardiogram came back with ejection fraction of 45% with MVP. She was maintained on IV Lasix and diuresed well before transitioning to PO lasix. Pt was discharged on metopolol, eliquis, and lasix as new medications. She will f/u with PCP, cardiology upon discharge. I spent 35 minutes coordinating this discharge on 07/25 Vital signs reviewed General: nontoxic, no distress, appears at stated age Cardiovascular: S1S2 reg, no murmur, positive posterior tibial pulse bilateral, Hemant: Improvement dusky appearance of bilateral lower extremities Lungs: CTA bilateral, no rhonchi, no rales , no accessory muscle use Abdominal: soft, nontender to palpation, no guarding, no appreciable organomegaly Ext: no gross muscle atrophy, trace edema b/l lower extremities, no contractures Neuro: CN II-XI grossly intact, no focal neuro deficits Psych: Alert, oriented, appropriate affect Patient Condition at Discharge: Good Plan - Discharge Summary Discharge Rx Participant: No New Discharge Prescriptions: New Apixaban [Eliquis] 2.5 mg PO BID #60 tab Furosemide [Lasix] 20 mg PO DAILY #30 tab Metoprolol Tartrate [Lopressor] 25 mg PO BID #60 tab Acetaminophen Tab [Tylenol] 650 mg PO Q6HR PRN tab PRN Reason: Mild Pain Or Fever > 100.5 Continue Levothyroxine Sodium [Synthroid] 75 mcg PO DAILY Latanoprost [Latanoprost 0.005%] 1 drop BOTH EYES HS Dorzolamide-Timol 2.23%/0.68% [Cosopt] 1 drop BOTH EYES BID Discharge Medication List Dorzolamide-Timol 2.23%/0.68% [Cosopt] 1 drop BOTH EYES BID 07/23/23 [History] Latanoprost [Latanoprost 0.005%] 1 drop BOTH EYES HS 07/23/23 [History] Levothyroxine Sodium [Synthroid] 75 mcg PO DAILY 07/23/23 [History] Acetaminophen Tab [Tylenol] 650 mg PO Q6HR PRN tab 07/25/23 [Rx] Apixaban [Eliquis] 2.5 mg PO BID #60 tab 07/25/23 [Rx] Furosemide [Lasix] 20 mg PO DAILY #30 tab 07/25/23 [Rx] Metoprolol Tartrate [Lopressor] 25 mg PO BID #60 tab 07/25/23 [Rx] Follow up Appointment(s)/Referral(s): Chelsy Owens MD [STAFF PHYSICIAN] - 1 Week (Spoke to corporate receptionist. Office will call with appointment time) Tyrone Adkins MD [Primary Care Provider] - 07/31/23 12:15 pm (Saturday with Kristine HOBBS) Patient Instructions/Handouts: A-fib (Atrial Fibrillation) (DC), Safe Use of Anticoagulants (DC) Discharge Disposition: HOME SELF-CARE
[2023-07-26] MEDS ORDERED: FUROSEMIDE 20 MG TAB PO SCH (09:00)
== END 2023-07-25 12:32 | disposition home or self-care (01) | DRG 291 ==
LOC: EC 12:39 → 3SCARD 15:54
PROVIDERS: ADMIT Internal Medicine; ATTEND Internal Medicine
DX: I11.0 Hypertensive heart disease with heart failure (principal); I50.33 Acute on chronic diastolic (congestive) heart failure; I48.0 Paroxysmal atrial fibrillation; Z60.2 Problems related to living alone; I08.0 Rheumatic disorders of both mitral and aortic valves; H40.9 Unspecified glaucoma; E03.9 Hypothyroidism, unspecified; Z28.311 Partially vaccinated for COVID-19; Z66 Do not resuscitate; Z28.21 Immunization not carried out because of patient refusal; M10.9 Gout, unspecified; I49.3 Ventricular premature depolarization; Z82.49 Family history of ischemic heart disease and other diseases of the circulatory system; Z79.890 Hormone replacement therapy; Z79.899 Other long term (current) drug therapy
CPT/HCPCS: 36415; 71046; 80048; 80053; 83735; 83880; 84443; 84484; 85025; 85027; 85610; 85730; 93005; 93306; 93922; 93970; 96365; 96366; 96368; 96375; 99291